=== PATIENT | female | born 1995 | race Caucasian/White ===

== ENCOUNTER 2016-10-26 09:02 | Day surgery (SDC) | payer BC, OTHER ==
[~2016-10-26] VITALS: Ht 172.7 cm; Wt 127.0 kg
[~2016-10-26 09:02] MED LIST: DOCUSATE SODIU250 MG PO; IBUPROFEN200 M1 PO; ONDANSETRON ODT4 MG PO; PERCOCET1 TA1 PO; PRENATA1 PO
[2016-10-26] MEDS ORDERED: NORCO1 TA1 PO (11:12)
--- NOTE | 2016-10-26 11:14 | Provider's Discharge Care Plan ---
Problem, Goal, Plan Problem List 1. Chronic cholecystitis
--- NOTE | 2016-10-26 11:14 | Provider's Discharge Care Plan ---
Problem, Goal, Plan Problem List 1. Chronic cholecystitis
--- NOTE | 2016-10-26 12:11 | DIAGNOSTIC IMAGING REPORT ---
PROCEDURE: XR INTRAOPERATIVE LAP LUDIVINA INDICATION: CHOLECYSTITIS TECHNIQUE: Intraoperative fluoroscopy provided for Dr. Larry performing an intraoperative cholangiogram following cholecystectomy. Total fluoroscopy time 0.5-minute Cumulative dose 2.7 mGy. COMPARISON: Ultrasound dated 10/08/2016 FINDINGS: One intraoperative fluoroscopic spot images of the right upper quadrant of the abdomen demonstrate cannulation of the cystic duct stump and opacification of the intrahepatic and extrahepatic biliary tree. There are no filling defects. There is normal passage of contrast into the duodenum. IMPRESSION: 1. Negative intraoperative cholangiogram.
[2016-10-26 13:54] VITALS: BP 131/80
--- NOTE | 2016-11-02 19:52 | OPERATIVE REPORT ---
DATE OF SURGERY: 10/26/2016 SURGEON: Dannie Coleman MD SENIOR SALES COMPENSATION ANALYST: Chely Milian III, MD PREOPERATIVE DIAGNOSES: 1. Chronic cholelithiasis 2. Acute and chronic cholecystitis POSTOPERATIVE DIAGNOSES: 1. Chronic cholelithiasis 2. Acute and chronic cholecystitis PROCEDURE PERFORMED: 1. Laparoscopic cholecystectomy with cholangiography ANESTHESIA: General. INDICATIONS: The patient is a 21-year-old woman with attacks of right upper quadrant abdominal pain. Ultrasound during the last attack showed gallbladder sludge or polyp with edema and pericholecystic fluid. She has had multiple attacks, and this latest one was long and persistent. SURGICAL TECHNIQUE: The patient was taken to the operating room, where a general anesthetic was administered and the patient prepped and draped in the usual sterile fashion. The patient received an orogastric tube, IV antibiotics, and sequential compression devices. A local anesthetic of 0.5% Marcaine with epinephrine was used at each incision site. An intraumbilical incision was made, and a Veress needle was used to insufflate the abdominal cavity. Visualization was obtained, and 3 additional trocars were placed in the upper abdomen. Adhesions of the anterior gallbladder to the omentum were taken down with blunt and electrocautery dissection. The cystic duct was isolated at the neck of the gallbladder and a clip placed. A fluoroscopic cholangiogram was carried out, which revealed free flow into the duodenum and no filling defects. The cystic duct and cystic artery were doubly clipped and divided and the gallbladder stripped from the gallbladder fossa using electrocautery. The gallbladder was delivered through the upper midline trocar site after being emptied of contents and submitted for histopathology. The gallbladder bed was inspected and found to be hemostatic. Additional Marcaine was instilled, gas was evacuated, and the midline sites closed with interrupted subcuticular 4-0 Vicryl suture and Steri-Strips. Dressings were placed. The patient left in good condition. No intraoperative complications were encountered.
== END 2016-10-26 15:22 | disposition home or self-care (01) ==
LOC: OR SRH 09:02 → SCU SRH 09:03 → OR SRH 11:00
PROVIDERS: Surgery
PROC: 0FT44ZZ Resection of Gallbladder, Percutaneous Endoscopic Approach (ICD-10-PCS; principal; 2016-10-26 11:00)
PROC: BF131ZZ Fluoroscopy of Gallbladder and Bile Ducts using Low Osmolar Contrast (ICD-10-PCS; principal; 2016-10-26 11:00)
DX: K80.10 Calculus of gallbladder with chronic cholecystitis without obstruction (principal); Z72.0 Tobacco use
CPT/HCPCS: 29240; 50002; 60001; 70002; 80102; 80212; 80248; 80852; 82794; 82807; 83338; 83339; 83348; 83587; 83920; 83937; 83982; 84038; 93070

== ENCOUNTER 2017-02-26 21:42 | Emergency (ER) | payer BC ==
[~2017-02-26 21:42] MED LIST changes: +NORCO1 TA1 PO
--- NOTE | 2017-02-26 22:21 | ED NURSING NOTES ---
Clinical Report - Nurses [facility] [address] [place] [address] 02/26/2017 21:42 Patient: SARAH CRUZ TRIAGE Triage time 21:45. Acuity: LEVEL 4. Chief Complaint: COUGH, RUNNY NOSE, FEVER and SORE THROAT and CHEST PAIN. --21:55 Ama Kirby R.N. 21:47 02/26/17. BP: 145/84 taken on the left arm, while lying. HR: 99 (regular and normal rate). RR: 18. O2 saturation: 97% on room air. Temp: 98.5 F. Pain level now: 04/23. --21:55 Ama Kirby R.N. Weight: 113.3 kg stated. Height/Length: 68 inches Per Patient. BMI: 38. --21:53 Ama Kirby R.N. Medications Control implant. --21:51 Ama Kirby R.N. Zofran Oral (Tablet 4 mg) 1 tablet, daily as needed. --21:51 Ama Kirby R.N. Omeprazole Oral (Tablet Delayed Release 20 mg) 1 tablet, daily. --21:52 Ama Kirby R.N. Allergies Amoxicillin. Definite Severe(itching) --21:52 Ama Kirby R.N. History Arrived by private vehicle. Historian: patient. Unaccompanied. Primary physician (otoniel). Onset was gradual. Worsened while sleeping and coughing. Symptoms still present (about 3 days). ( started 3 days ago, with coughing and chest pain with cough). She has had chills and fatigue. She has had moderate chest congestion (3 days - still present). ( coughing white caho phlem). PAST MEDICAL HX: Immunizations: up-to-date. Last normal menstrual period was 2 weeks ago. 1. Para 1. Uses depo implants. SOCIAL HX: Light tobacco smoker (cigarette)- less than 1/2 a pack per day. Occasional alcohol use; consumes liquor occasionally. No drug use. No infectious disease exposure. ABUSE ASSESSMENT: No report of abuse. SELF HARM ASSESSMENT: A self harm assessment was performed. The patient answered "no" to the question "Have you recently felt down, depressed, or hopeless?", "Have you noticed less interest or pleasure in doing things?", "Do you have thoughts of harming or killing yourself?", "Are you here because you tried to hurt yourself?", "Have you ever tried to hurt yourself before today?", "Have you recently had thoughts about harming or killing others?" and "Do you have any dangerous items in your possession?". FALL RISK ASSESSMENT: Fall risk assessment completed. No fall risk identified. NUTRITIONAL RISK ASSESSMENT: The nutritional risk assessment revealed no deficiencies. FUNCTIONAL ASSESSMENT: Functional assessment: no impairments noted. LEARNING NEEDS ASSESSMENT: The learning needs assessment revealed no barriers. SKIN INTEGRITY ASSESSMENT: Skin integrity risk assessment completed. No skin integrity risk identified. --21:55 Ama Kirby R.N. PROBLEMS: Nausea. Abdominal Pain. URI. --21:52 Ama Kirby R.N. ADDITIONAL SURGERIES: Cholecystectomy. Dental Surgery. --21:52 Ama Kirby R.N. Interventions ID band on patient. --:55 Ama Kirby R.N. PHYSICAL ASSESSMENT Ambulatory to room. GENERAL / NEURO / PSYCH: Alert. Oriented X 4. Appears in no acute distress. HEENT: Pupils equal, round and reactive to light. Ears within normal limits. Pharynx within normal limits. Voice within normal limits. Mucous membranes are pink. RESPIRATORY: Respirations not labored. Nonproductive cough (pt states productive however sounds very dry). Breath sounds within normal limits. CVS: Normal sinus rhythm noted. Capillary refill less than 2 seconds. SKIN: Skin is warm and dry. Normal skin turgor. --:56 Ama Kirby R.N. NURSING PROGRESS NOTES Patient gowned. Two patient identifiers checked. Call light placed in reach. Side rails up x 1. Bed placed in lowest position. Brakes of bed on. --:56 Ama Kirby R.N. Patient ready for evaluation- chart flagged. --21:56 Ama Kirby R.N. DISPOSITION / DISCHARGE Condition at departure: unchanged and stable. No learning barriers present. Discharge instructions provided and reviewed with the patient. Reviewed medication(s) side effects, precautions, dosing and course information. Prescription(s) given to the patient. Reviewed need to stop smoking. Patient verbalized understanding. Written instructions provided in Vincentian. The patient was discharged home and unaccompanied at time of discharge. She left the Emergency Department ambulatory and via private vehicle. Patient driving. --22:41 Ama Kirby R.N. 22:41 02/26/17. BP: deferred. HR: deferred. RR: deferred. O2 saturation: deferred. Temp: deferred. Pain level now deferred. --22:41 Ama Kirby R.N. Departure time: 22:42. --22:42 Ama Kirby R.N. Locked/Released at 02/26/2017 22:42 by Ama Kirby R.N.
--- NOTE | 2017-02-26 22:21 | ED CLINICAL REPORT ---
Clinical Report - Physicians/Mid Levels [facility] [address] [place] [address] 02/26/2017 21:42 Patient: SARAH CRUZ Time Seen: 21:45; initial patient contact, initial documentation, patient care assumed. Arrived- By private vehicle. Historian- patient. HISTORY OF PRESENT ILLNESS Chief Complaint: COUGH and SORE THROAT. This started about 3 days ago and is still present. It was gradual in onset. The illness is described as moderate. The patient has had a cough, chest discomfort, nasal congestion, chills and muscle aches. She has had chest pain and a nasal discharge. She has had scant amounts of thick, white sputum. No fever, sore throat, sinus pressure, sinus drainage or ear pain. Additional history - The patient has had contact with a sick mother. Symptoms of the sick contact include cough. They have had similar symptoms. Similar symptoms previously: None. Recent medical care: Not recently seen/assessed. REVIEW OF SYSTEMS No headache, vomiting, diarrhea or abdominal pain. All systems otherwise negative, except as recorded above. PAST HISTORY See nurses notes. PROBLEMS: Nausea. Abdominal Pain. URI. --21:52 Ama Kirby R.N. ADDITIONAL SURGERIES: Cholecystectomy. Dental Surgery. --21:52 Ama Kirby R.N. SOCIAL HISTORY Light tobacco smoker. Occasional alcohol use; consumes liquor. Not exposed to second-hand smoke at home. No drug use. No recent travel. Is a local resident. FAMILY HISTORY Negative. ADDITIONAL NOTES The nursing notes have been reviewed with agreement regarding the chief complaint, HPI, ROS, PMH and patient medications and allergies. PHYSICAL EXAM Vital Signs: 02/26/2017 21:47 BP: 145/84. HR: 99. RR: 18. O2 saturation: 97%. Temp: 98.5 F. Pain level now: 7/10. Have been reviewed as normal and appear to be correct. Appearance: Alert. No acute distress. Eyes: Pupils equal, round and reactive to light. Eyes normal inspection. ENT: Ears normal. Nose normal. Pharynx normal. Uvula midline. Neck: Normal inspection. Neck supple. CVS: Normal heart rate and rhythm. Heart sounds normal. Pulses normal. Respiratory: No respiratory distress. Breath sounds normal. Abdomen: Soft and nontender. No organomegaly. Moderately obese. Back: Normal inspection. Skin: Skin warm and dry. Normal skin color. No rash. Normal skin turgor. Extremities: Extremities exhibit normal ROM. No lower extremity edema. Neuro: Oriented X 3. No motor deficit. No sensory deficit. PROGRESS AND PROCEDURES Course of Care: tx plan discussed, pt worried about walking pneumonia, because her mom has same thing and we dx her with it, so she would feel better with abx. Patient counseled in person regarding the patient's stable condition and diagnosis. Differential Diagnosis: Other possible considerations: flu, uri, viral illness, sinusitis, allergies, asthma, bronchitis, pneumonia. Above considerations are based on history and physical exam. Differential diagnosis was discussed with patient. Disposition: Discharged home in good and unchanged condition (22:20). Condition: good and stable. CLINICAL IMPRESSION Acute rhinitis. No airway obstruction. INSTRUCTIONS Alternate Tylenol (Acetaminophen) and Motrin (Ibuprofen) for fever, temperature greater than 101 degrees orally. Take according to label instructions. Drink plenty of fluids today, for the next 24 hours until better. Warnings: GENERAL WARNINGS: Return or contact your physician immediately if your condition worsens or changes unexpectedly, if not improving as expected, or if other problems arise. Specifically return if problem worsens. Prescription Medications: Zithromax 250 mg tablets: take 2 orally today, followed by 1 daily for the next 4 days. No refills. Substitution is permissible. Follow-up: Follow up with your doctor in about three days as needed. Call for an appointment. Summary of care provided to patient. Understanding of the discharge instructions verbalized by patient. (Electronically signed by Keiko Cooper A.R.N.P. 02/26/2017 22:43)
--- NOTE | 2017-02-26 22:43 | ED MAR SUMMARY ---
..... Medication Administration Record [facility] [address] [place], [place] [id number] Patient: AMRIT CRUZBENNY Astorga Visit ID: [id number] 21y, F Weight: 113.3 kg Height/Length: 68 in BMI: 38 ALLERGIES: Amoxicillin
--- NOTE | 2017-02-26 22:43 | ED MED RECONCILIATION SUMMARY ---
Patient: SARAH CRUZ Medication Reconciliation Report [facility] VisitID: [id number] [address] [place] [address] 21y, F Registration Date/Time: 02/26/2017 Weight: 113.3 kg Height/Length: 68 in. BMI: 38.0 ALLERGIES: Amoxicillin The patient's Home Medications are listed below: THE FOLLOWING MEDICATIONS NEED TO BE RECONCILED: Control implant Omeprazole Oral (20 mg) 1 tablet, daily Zofran Oral (4 mg) 1 tablet, daily The source(s) of the original Home Medication information: Not obtained. The following Medications were given to the patient in the Emergency Department: None. The following Medications were prescribed to the patient: Zithromax 250 mg tablets: take 2 orally today, followed by 1 daily for the next 4 days. No refills. Substitution is permissible. -- Keiko Cooper A.R.N.P.
--- NOTE | 2017-02-26 22:43 | ED DISCHARGE INSTRUCTIONS ---
Patient: SARAH CRUZ General Instructions [facility] VisitID: [id number] [place] [address] 21y, F Registration Date/Time: 02/26/2017 Acute rhinitis. No airway obstruction. INSTRUCTIONS Alternate Tylenol (Acetaminophen) and Motrin (Ibuprofen) for fever, temperature greater than 101 degrees orally. Take according to label instructions. Drink plenty of fluids today, for the next 24 hours until better. Warnings: GENERAL WARNINGS: Return or contact your physician immediately if your condition worsens or changes unexpectedly, if not improving as expected, or if other problems arise. Specifically return if problem worsens. Prescription Medications: Zithromax 250 mg tablets: take 2 orally today, followed by 1 daily for the next 4 days. No refills. Substitution is permissible. Follow-up: Follow up with your doctor in about three days as needed. Call for an appointment. Summary of care provided to patient. Understanding of the discharge instructions verbalized by patient. ADDITIONAL INFORMATION Viral Respiratory Illness [Adult] You have an Upper Respiratory Illness (URI) caused by a virus. This illness is contagious during the first few days. It is spread through the air by coughing and sneezing or by direct contact (touching the sick person and then touching your own eyes, nose or mouth). Most viral illnesses go away within 7-10 days with rest and simple home remedies. Sometimes, the illness may last for several weeks. Antibiotics will not kill a virus and are generally not prescribed for this condition. Home Care: 1) If symptoms are severe, rest at home for the first 2-3 days. When you resume activity, don't let yourself get too tired. 2) Avoid being exposed to cigarette smoke (yours or others). 3) Tylenol (acetaminophen) or ibuprofen (Advil, Motrin) will help fever, muscle aching and headache. (Persons under 18 with fever should not take aspirin since this may cause liver damage.) 4) Your appetite may be poor, so a light diet is fine. Avoid dehydration by drinking 6-8 glasses of fluids per day (water, soft drinks, juices, tea, soup). Extra fluids will help loosen secretions in the nose and lungs. 5) Lfew-xzq-knlxvyn cold medicines will not shorten the length of time youre sick, but they may be helpful for the following symptoms: cough (Robitussin DM); sore throat (Chloraseptic lozenges or spray); nasal and sinus congestion (Actifed, Sudafed, Chlortrimeton). Follow Up with your doctor or as advised if you dont improve over the next week. Get Prompt Medical Attention if any of the following occur: -- Cough with lots of colored sputum (mucus) or blood in your sputum -- Chest pain, shortness of breath, wheezing or have trouble breathing -- Severe headache; face, neck or ear pain -- Fever over 100.4 F (38.0 C) for more than three days -- You cant swallow due to throat pain Fever Control (Adult) A fever is a natural reaction of the body to an illness. In most cases, the temperature itself is not harmful. It actually helps the body fight infections. A fever does not need to be treated unless you feel very uncomfortable. Home Care If you feel warm, check your temperature. If you feel very uncomfortable and your temperature is at or higher than 100.4F (38C) oral, you may take acetaminophen (Tylenol) every 4 to 6 hours. If you cant take or keep down oral medicine, ask your pharmacist for Tylenol suppositories, which you can get without a prescription. If the fever does not respond to acetaminophen within 1 hour, take ibuprofen (Advil or Motrin). If this works, keep taking the ibuprofen every 6 to 8 hours. Note: If you have chronic liver or kidney disease or ever had a stomach ulcer or GI bleeding, talk with your doctor before using these medications. If either medication alone does not keep the fever down, you may alternate the two medicines every 3 to 4 hours, only if your healthcare provider has instructed you to do so. For example, take Motrin then wait 3 hours, take Tylenol then wait 3 hours, take Motrin, and so on. Follow your healthcare providers instructions exactly. Clothing: Keep clothing light because excess body heat is lost through the skin. The fever will go up if you wear extra layers or wrap in blankets. Fluids: Fever causes the body to lose water through evaporation. Drink plenty of fluids such as water, juice, clear sodas, denny guerline, or lemonade. Do not use aspirin in anyone under 18 years of age who is ill with a fever. It can cause severe liver damage. Follow Up with your doctor or as advised by our staff if you do not get better after 48 hours. Get Prompt Medical Attention if any of the following occur: Fever does not get better after taking fever medication Fast or difficult breathing Earache, sinus pain, stiff or painful neck, headache, repeated diarrhea or vomiting You feel unusually irritable, drowsy, or confused A rash appears You feel weak or dizzy, or that you might faint Azithromycin Oral tablet What is this medicine? AZITHROMYCIN (az ith evelyne JEAN sin) is a macrolide antibiotic. It is used to treat or prevent certain kinds of bacterial infections. It will not work for colds, flu, or other viral infections. How should I use this medicine? Take this medicine by mouth with a full glass of water. Follow the directions on the prescription label. The tablets can be taken with food or on an empty stomach. If the medicine upsets your stomach, take it with food. Take your medicine at regular intervals. Do not take your medicine more often than directed. Take all of your medicine as directed even if you think your are better. Do not skip doses or stop your medicine early. Talk to your program schedule clerk regarding the use of this medicine in children. Special care may be needed. What side effects may I notice from receiving this medicine? Side effects that you should report to your doctor or health child care centre manager as soon as possible: allergic reactions like skin rash, itching or hives, swelling of the face, lips, or tongue confusion, nightmares or hallucinations dark urine difficulty breathing hearing loss irregular heartbeat or chest pain pain or difficulty passing urine redness, blistering, peeling or loosening of the skin, including inside the mouth white patches or sores in the mouth yellowing of the eyes or skin Side effects that usually do not require medical attention (report to your doctor or health child care centre manager if they continue or are bothersome): diarrhea dizziness, drowsiness headache stomach upset or vomiting tooth discoloration vaginal irritation What may interact with this medicine? Do not take this medicine with any of the following medications: lincomycin This medicine may also interact with the following medications: amiodarone antacids cyclosporine digoxin magnesium nelfinavir phenytoin warfarin What if I miss a dose? If you miss a dose, take it as soon as you can. If it is almost time for your next dose, take only that dose. Do not take double or extra doses. Where should I keep my medicine? Keep out of the reach of children. Store at room temperature between 15 and 30 degrees C (59 and 86 degrees F). Throw away any unused medicine after the expiration date. What should I tell my health care provider before I take this medicine? They need to know if you have any of these conditions: kidney disease liver disease irregular heartbeat or heart disease an unusual or allergic reaction to azithromycin, erythromycin, other macrolide antibiotics, foods, dyes, or preservatives or trying to get breast-feeding What should I watch for while using this medicine? Tell your doctor or health child care centre manager if your symptoms do not improve. Do not treat diarrhea with over the counter products. Contact your doctor if you have diarrhea that lasts more than 2 days or if it is severe and watery. This medicine can make you more sensitive to the sun. Keep out of the sun. If you cannot avoid being in the sun, wear protective clothing and use sunscreen. Do not use sun lamps or tanning beds/booths. You have been given the following additional information: Uri, Viral, No Abx (Adult) Fever Control (Adult) Azithromycin Oral tablet (Electronically signed by Keiko Cooper A.R.N.P. 02/26/2017 22:43)
--- NOTE | 2017-02-26 22:43 | ED MED RECONCILIATION SUMMARY ---
Patient: SARAH CRUZ Medication Reconciliation Report [facility] VisitID: [id number] [address] [place] [address] 21y, F Registration Date/Time: 02/26/2017 Weight: 113.3 kg Height/Length: 68 in. BMI: 38.0 ALLERGIES: Amoxicillin The patient's Home Medications are listed below: THE FOLLOWING MEDICATIONS NEED TO BE RECONCILED: Control implant Omeprazole Oral (20 mg) 1 tablet, daily Zofran Oral (4 mg) 1 tablet, daily The source(s) of the original Home Medication information: Not obtained. The following Medications were given to the patient in the Emergency Department: None. The following Medications were prescribed to the patient: Zithromax 250 mg tablets: take 2 orally today, followed by 1 daily for the next 4 days. No refills. Substitution is permissible. -- Keiko Cooper A.R.N.P.
--- NOTE | 2017-02-26 22:43 | ED MAR SUMMARY ---
..... Medication Administration Record [facility] [address] [place], [place] [id number] Patient: AMRIT CRUZBENNY Astorga Visit ID: [id number] 21y, F Weight: 113.3 kg Height/Length: 68 in BMI: 38 ALLERGIES: Amoxicillin
== END 2017-02-26 22:42 | disposition home or self-care (01) ==
LOC: ED SRH 21:42
DX: J00 Acute nasopharyngitis [common cold] (principal); Z72.0 Tobacco use; Z88.0 Allergy status to penicillin; Z79.899 Other long term (current) drug therapy

== ENCOUNTER 2017-03-18 17:51 | Emergency (ER) | payer BC ==
--- NOTE | 2017-03-18 18:33 | ED CLINICAL REPORT ---
Clinical Report - Physicians/Mid Levels [facility] [address] [place] [address] 03/18/2017 17:53 Patient: SARAH CRUZ Time Seen: 17:57; initial patient contact. Arrived- By private vehicle. Historian- patient. HISTORY OF PRESENT ILLNESS Chief Complaint: COUGH. This started 3 weeks ago; Pt. states she was seen here x3 weeks ago and treated for an URI with a z-pack. She is here today because she feels like she is not getting any better. and is still present and worsening. The illness is described as mild. The patient has had a cough, nasal congestion, sinus pressure and a nasal discharge. She has had scant amounts of thick, clear, white sputum. No difficulty breathing, chest pain, sore throat or hoarseness. She has had mild central chest congestion. Additional history - No known contact with a sick individual. Similar symptoms previously: Recent medical care: The patient was seen recently at this facility in the emergency department (2 weeks ago). ( had an allergic reaction to the zithromax and didn't take the last dose). REVIEW OF SYSTEMS No headache, eye discomfort, nausea, vomiting or diarrhea. All systems otherwise negative, except as recorded above. PAST HISTORY See nurses notes. Problems: Nausea. Abdominal Pain. URI. Medications: Control implant. Omeprazole Oral (Tablet Delayed Release 20 mg) 1 tablet, daily. Zofran Oral (Tablet 4 mg) 1 tablet, daily as needed. Allergies: Amoxicillin. Definite Severe(itching) Azithromycin. SOCIAL HISTORY Heavy tobacco smoker (cigarette)- less than 1 pack per day. No alcohol use or drug use. FAMILY HISTORY Negative. ADDITIONAL NOTES The nursing notes have been reviewed with agreement regarding the chief complaint, HPI, ROS, PMH and patient medications and allergies. PHYSICAL EXAM Vital Signs: 03/18/2017 17:59 BP: 115/62. HR: 110. RR: 18. O2 saturation: 96%. Temp: 99.0 F. Have been reviewed. Appearance: Alert. No acute distress. Eyes: Pupils equal, round and reactive to light. ENT: Ears normal. Nose normal. Pharynx normal. Uvula midline. Neck: Normal inspection. CVS: Normal heart rate and rhythm. Heart sounds normal. Respiratory: No respiratory distress. Mild bilateral rhonchi present posteriorly. Abdomen: Soft and nontender. No organomegaly. LABS, X-RAYS, AND EKG Chest X-ray: Normal Chest X-Ray. The X-rays were independently viewed by me, interpreted by the radiologist and discussed with the radiologist. PROGRESS AND PROCEDURES Course of Care: Patient is stable. Symptoms better. CLINICAL IMPRESSION Acute bacterial bronchitis. INSTRUCTIONS No strenuous activity. Rest. Do not work for two days until better. Drink plenty of fluids. Do not smoke. No alcohol. Warnings: Further evaluation is necessary. It is very important to follow up with a physician. Your Current Medications: CONTINUE TAKING THE FOLLOWING MEDICATIONS: Control implant*. Omeprazole Oral : Tablet Delayed Release 20 mg, 1 tablet daily. Zofran Oral : Tablet 4 mg, 1 tablet daily, prn. Prescription Medications: Robitussin A-C cough syrup take two (2) teaspoons orally every 8 hours as needed for cough. Dispense one hundred twenty (120) mL. No refill. Substitution is permissible. Doxycycline 100 mg: Take 1 capsule orally every 12 hours for 10 days. No refill. Understanding of the discharge instructions verbalized by patient. (Electronically signed by Bharti Dejesus PA-C 03/18/2017 21:29)
--- NOTE | 2017-03-18 18:33 | ED NURSING NOTES ---
Clinical Report - Nurses [facility] [address] [place] [address] 03/18/2017 17:53 Patient: SARAH CRUZ TRIAGE Triage time 17:57. Acuity: LEVEL 4. Chief Complaint: COUGH and (follow up on URI.). Alert. No acute distress. ( Pt. states she was seen here x3 weeks ago and treated for an URI with a z-pack. She is here today because she feels like she is not getting any better.). SEPSIS SCREEN: Sepsis Screen. Negative (no infection suspected/documented). --18:01 Brea Wisdom R.N. 17:59 03/18/17. BP: 115/62. HR: 110. RR: 18. O2 saturation: 96%. Temp: 99.0 F. Pain level now 5/10. --18:01 Brea Wisdom R.N. Weight: 113.3 kg stated. Height/Length: 68 inches Per Patient. BMI: 38. --17:57 Brea Wisdom R.N. Medications Control implant. Omeprazole Oral (Tablet Delayed Release 20 mg) 1 tablet, daily. Zofran Oral (Tablet 4 mg) 1 tablet, daily as needed. --18:00 Brea Wisdom R.N. Allergies Amoxicillin. Definite Severe(itching) --18:00 Brea Wisdom R.N. Azithromycin. --18:01 Brea Wisdom R.N. History Arrived by private vehicle. Historian: patient. Unaccompanied. Primary physician (Dr. Flores). Onset. (3 weeks ago). 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 PAST MEDICAL HX: Immunizations: up-to-date. Last normal menstrual period- 3 weeks ago. SOCIAL HX: Heavy tobacco smoker (cigarette)- less than 1 pack per day. Occasional alcohol use. (weekends). No drug use. ABUSE ASSESSMENT: Abuse assessment: The patient was asked "Do you feel safe in your home?" and "Has anyone hurt you or threatened to hurt you?". No report of abuse. SELF HARM ASSESSMENT: A self harm assessment was performed. The patient answered "no" to the question "Do you have thoughts of harming or killing yourself?" and "Have you recently had thoughts about harming or killing others?". NUTRITIONAL RISK ASSESSMENT: The nutritional risk assessment revealed no deficiencies. FUNCTIONAL ASSESSMENT: Functional assessment: no impairments noted. LEARNING NEEDS ASSESSMENT: The learning needs assessment revealed no barriers. --18: Brea Wisdom R.N. PROBLEMS: Nausea. Abdominal Pain. URI. --18: Brea Wisdom R.N. ADDITIONAL SURGERIES: Cholecystectomy. Dental Surgery. --18: Brea Wisdom R.N. Interventions ID band on patient. Ambulatory. --18: Brea Wisdom R.N. PHYSICAL ASSESSMENT Ambulatory to room. GENERAL / NEURO / PSYCH: Alert. Appears in no acute distress. HEENT: Mucous membranes are pink. RESPIRATORY: Respirations not labored. CVS: Capillary refill less than 2 seconds. SKIN: Skin is warm and dry. --18: Brea Wisdom R.N. NURSING PROGRESS NOTES Patient gowned. Head of bed elevated. Two patient identifiers checked. Call light placed in reach. Side rails up x 2. Bed placed in lowest position. Brakes of bed on. Patient ready for evaluation- chart flagged. --18: Brea Wisdom R.N. DISPOSITION / DISCHARGE 18:45. Departure time: 1844. Condition at departure: stable. No learning barriers present. Discharge instructions provided and reviewed with the patient. Reviewed medication(s) side effects, precautions, dosing and course information. Prescription(s) given to the patient. Reviewed referral to family practice for followup. Work note given. Patient verbalized understanding. Written instructions provided in Yakut. The patient was discharged home and unaccompanied at time of discharge. She left the Emergency Department ambulatory and via private vehicle. Medication list reviewed and validated. --18:49 Brea Wisdom R.N. 18:45 03/18/17. HR: 90. RR: 16. Additional comments: d/c v/s deferred due to pt. in ED < 1 hour. . --18:49 Brea Wisdom R.N. Locked/Released at 03/18/2017 18:49 by Brea Wisdom R.N.
--- NOTE | 2017-03-18 18:33 | ED NURSING NOTES ---
Clinical Report - Nurses [facility] [address] [place] [address] 03/18/2017 17:53 Patient: SARAH CRUZ TRIAGE Triage time 17:57. Acuity: LEVEL 4. Chief Complaint: COUGH and (follow up on URI.). Alert. No acute distress. ( Pt. states she was seen here x3 weeks ago and treated for an URI with a z-pack. She is here today because she feels like she is not getting any better.). SEPSIS SCREEN: Sepsis Screen. Negative (no infection suspected/documented). --18:01 Brea Wisdom R.N. 17:59 03/18/17. BP: 115/62. HR: 110. RR: 18. O2 saturation: 96%. Temp: 99.0 F. Pain level now 5/10. --18:01 Brea Wisdom R.N. Weight: 113.3 kg stated. Height/Length: 68 inches Per Patient. BMI: 38. --17:57 Brea Wisdom R.N. Medications Control implant. Omeprazole Oral (Tablet Delayed Release 20 mg) 1 tablet, daily. Zofran Oral (Tablet 4 mg) 1 tablet, daily as needed. --18:00 Brea Wisdom R.N. Allergies Amoxicillin. Definite Severe(itching) --18:00 Brea Wisdom R.N. Azithromycin. --18:01 Brea Wisdom R.N. History Arrived by private vehicle. Historian: patient. Unaccompanied. Primary physician (Dr. Flores). Onset. (3 weeks ago). 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 PAST MEDICAL HX: Immunizations: up-to-date. Last normal menstrual period- 3 weeks ago. SOCIAL HX: Heavy tobacco smoker (cigarette)- less than 1 pack per day. Occasional alcohol use. (weekends). No drug use. ABUSE ASSESSMENT: Abuse assessment: The patient was asked "Do you feel safe in your home?" and "Has anyone hurt you or threatened to hurt you?". No report of abuse. SELF HARM ASSESSMENT: A self harm assessment was performed. The patient answered "no" to the question "Do you have thoughts of harming or killing yourself?" and "Have you recently had thoughts about harming or killing others?". NUTRITIONAL RISK ASSESSMENT: The nutritional risk assessment revealed no deficiencies. FUNCTIONAL ASSESSMENT: Functional assessment: no impairments noted. LEARNING NEEDS ASSESSMENT: The learning needs assessment revealed no barriers. --18: Brea Wisdom R.N. PROBLEMS: Nausea. Abdominal Pain. URI. --18: Brea Wisdom R.N. ADDITIONAL SURGERIES: Cholecystectomy. Dental Surgery. --18: Brea Wisdom R.N. Interventions ID band on patient. Ambulatory. --18: Brea Wisdom R.N. PHYSICAL ASSESSMENT Ambulatory to room. GENERAL / NEURO / PSYCH: Alert. Appears in no acute distress. HEENT: Mucous membranes are pink. RESPIRATORY: Respirations not labored. CVS: Capillary refill less than 2 seconds. SKIN: Skin is warm and dry. --18: Brea Wisdom R.N. NURSING PROGRESS NOTES Patient gowned. Head of bed elevated. Two patient identifiers checked. Call light placed in reach. Side rails up x 2. Bed placed in lowest position. Brakes of bed on. Patient ready for evaluation- chart flagged. --18: Brea Wisdom R.N. DISPOSITION / DISCHARGE 18:45. Departure time: 1844. Condition at departure: stable. No learning barriers present. Discharge instructions provided and reviewed with the patient. Reviewed medication(s) side effects, precautions, dosing and course information. Prescription(s) given to the patient. Reviewed referral to family practice for followup. Work note given. Patient verbalized understanding. Written instructions provided in Georgian. The patient was discharged home and unaccompanied at time of discharge. She left the Emergency Department ambulatory and via private vehicle. Medication list reviewed and validated. --18:49 Brea Wisdom R.N. 18:45 03/18/17. HR: 90. RR: 16. Additional comments: d/c v/s deferred due to pt. in ED < 1 hour. . --18:49 Brea Wisdom R.N. Locked/Released at 03/18/2017 18:49 by Brea Wisdom R.N.
--- NOTE | 2017-03-18 18:34 | ED ORDER SUMMARY ---
..... Patient: SARAH CRUZ OrderSheet [facility] VisitID: [id number] [address] [place] [address] 21y, F Registration Date/Time: 03/18/2017 ORDER SHEET Weight: 113.3 kg (stated) Allergies: Amoxicillin, Azithromycin GENERAL ORDERS: Chest 2V Urgent (18:12 03/18/2017 Zhao DOWNS) (Ack 18:24 [place] ER Tech1) (18:38 [place]) MEDICATION ORDERS: IV FLUIDS: ORDER SHEET NOTES: [Electronically signed by Brea Wisdom R.N. (18:49 03/18/2017)] [Electronically signed by Bharti Dejesus PA-C (21:29 03/18/2017)] [Electronically locked/signed by Brea Wisdom R.N. (18:49 03/18/2017)]
--- NOTE | 2017-03-18 18:34 | ED ORDER SUMMARY ---
..... Patient: ASRAH CRUZ OrderSheet [facility] VisitID: [id number] [address] [place] [address] 21y, F Registration Date/Time: 03/18/2017 ORDER SHEET Weight: 113.3 kg (stated) Allergies: Amoxicillin, Azithromycin GENERAL ORDERS: Chest 2V Urgent (18:12 03/18/2017 Zhao DOWNS) (Ack 18:24 NHouse ER Tech1) (18:38 [place]) MEDICATION ORDERS: IV FLUIDS: ORDER SHEET NOTES: [Electronically signed by Brea Wisdom R.N. (18:49 03/18/2017)] [Electronically signed by Bharti Dejesus PA-C (21:29 03/18/2017)] [Electronically locked/signed by Brea Wisdom R.N. (18:49 03/18/2017)]
--- NOTE | 2017-03-18 20:49 | DIAGNOSTIC IMAGING REPORT ---
PROCEDURE: XR CHEST 2 VIEW INDICATION: SHORTNESS OF BREATH TECHNIQUE: Two views. COMPARISON: None. FINDINGS: The cardiomediastinal contour and central vasculature are within normal limits. Scattered strandy density in the [id number] lungs bilaterally. No dense consolidations. No pleural effusion, or pneumothorax. The visualized osseous structures are intact. IMPRESSION: 1. Scatter strandy density is likely atelectatic change or potentially scarring. No dense consolidations to suggest acute pneumonia.
--- NOTE | 2017-03-18 20:49 | DIAGNOSTIC IMAGING REPORT ---
PROCEDURE: XR CHEST 2 VIEW INDICATION: SHORTNESS OF BREATH TECHNIQUE: Two views. COMPARISON: None. FINDINGS: The cardiomediastinal contour and central vasculature are within normal limits. Scattered strandy density in the [id number] lungs bilaterally. No dense consolidations. No pleural effusion, or pneumothorax. The visualized osseous structures are intact. IMPRESSION: 1. Scatter strandy density is likely atelectatic change or potentially scarring. No dense consolidations to suggest acute pneumonia.
--- NOTE | 2017-03-18 21:30 | ED MAR SUMMARY ---
..... Medication Administration Record [facility] [address] [place], [place] [id number] Patient: SARAH CRUZ Gauri Visit ID: [id number] 21y, F Weight: 113.3 kg Height/Length: 68 in BMI: 38 ALLERGIES: Azithromycin, Amoxicillin
--- NOTE | 2017-03-18 21:30 | ED DISCHARGE INSTRUCTIONS ---
Patient: SARAH CRUZ General Instructions Merged With [facility] VisitID: [id number] [place] [address] 21y, F Registration Date/Time: 03/18/2017 Acute bacterial bronchitis. INSTRUCTIONS No strenuous activity. Rest. Do not work for two days until better. Drink plenty of fluids. Do not smoke. No alcohol. Warnings: Further evaluation is necessary. It is very important to follow up with a physician. Your Current Medications: CONTINUE TAKING THE FOLLOWING MEDICATIONS: Control implant*. Omeprazole Oral : Tablet Delayed Release 20 mg, 1 tablet daily. Zofran Oral : Tablet 4 mg, 1 tablet daily, prn. Prescription Medications: Robitussin A-C cough syrup take two (2) teaspoons orally every 8 hours as needed for cough. Dispense one hundred twenty (120) mL. No refill. Substitution is permissible. Doxycycline 100 mg: Take 1 capsule orally every 12 hours for 10 days. No refill. Understanding of the discharge instructions verbalized by patient. ADDITIONAL INFORMATION Bronchitis (Adult: Abx Tx) BRONCHITIS is an infection of the air passages (bronchial tubes). It often occurs during the common cold. Symptoms include cough with mucus (phlegm) and low-grade fever. Bronchitis usually lasts 7-14 days. Mild cases can be treated with simple home remedies. More severe infection is treated with an antibiotic. Home Care: If symptoms are severe, rest at home for the first 2-3 days. When you resume activity, don't let yourself get too tired. Do not smoke. Avoid being exposed to the smoke of others. You may use acetaminophen (Tylenol) or ibuprofen (Motrin, Advil) to control fever or pain, unless another medicine was prescribed for this. [NOTE: If you have chronic liver or kidney disease or ever had a stomach ulcer or GI bleeding, talk with your doctor before using these medicines.] Your appetite may be poor, so a light diet is fine. Avoid dehydration by drinking 6-8 glasses of fluids per day (water, soft, drinks, juices, tea, soup, etc.). Extra fluids will help loosen secretions in the lungs. Firb-[id number]-uixkavb cough medicines that containdextromethorphan(such as Robitussin DM) and decongestants (Actifed or Sudafed) may help relieve cough and congestion. [NOTE: Do not use decongestants if you have high blood pressure.] Finish all antibiotic medicine, even if you are feeling better after only a few days. Follow Up with your doctor or as directed if you dont start to feel better after three days. [NOTE: If you are age 65 or older, or if you have chronic asthma or COPD, we recommend a PNEUMOCOCCAL VACCINATION every five years and a yearly INFLUENZAVACCINATION (FLU-SHOT) every . Ask your doctor about this. If you had an X-ray, a radiologist will review it. You will be notified of any new findings that may affect your care.] Get Prompt Medical Attention if any of the following occur: Fever over 100.4F (38.0C) for more than three days Trouble breathing, wheezing or pain with breathing Coughing up blood or increased amounts of colored sputum Weakness, drowsiness, headache, facial pain, ear pain or a stiff neck You have been given the following additional information: Bronchitis, Antiobiotic Treatment (Adult) No strenuous activity. Rest. Do not work for two days until better. (Electronically signed by Bharti Dejesus PA-C 03/18/2017 21:29)
--- NOTE | 2017-03-18 21:30 | ED MAR SUMMARY ---
..... Medication Administration Record [facility] [address] [place], [place] [id number] Patient: SARAH CRUZ Gauri Visit ID: [id number] 21y, F Weight: 113.3 kg Height/Length: 68 in BMI: 38 ALLERGIES: Azithromycin, Amoxicillin
--- NOTE | 2017-03-18 21:30 | ED MED RECONCILIATION SUMMARY ---
Patient: SARAH CRUZ Medication Reconciliation Report [facility] VisitID: [id number] [place] [address] 21y, F Registration Date/Time: 03/18/2017 Weight: 113.3 kg Height/Length: 68 in. BMI: 38.0 ALLERGIES: Amoxicillin, Azithromycin The patient's Home Medications are listed below: CONTINUE TAKING THE FOLLOWING MEDICATIONS: Control implant Omeprazole Oral (20 mg) 1 tablet, daily Zofran Oral (4 mg) 1 tablet, daily The source(s) of the original Home Medication information: Not obtained. The following Medications were given to the patient in the Emergency Department: None. The following Medications were prescribed to the patient: Robitussin A-C cough syrup take two (2) teaspoons orally every 8 hours as needed for cough. Dispense one hundred twenty (120) mL. No refill. Substitution is permissible. -- Bharti Dejesus PA-C Doxycycline 100 mg: Take 1 capsule orally every 12 hours for 10 days. No refill. -- Bharti Dejesus PA-C
--- NOTE | 2017-03-18 21:30 | ED MED RECONCILIATION SUMMARY ---
Patient: SARAH CRUZ Medication Reconciliation Report [facility] VisitID: [id number] [place] [address] 21y, F Registration Date/Time: 03/18/2017 Weight: 113.3 kg Height/Length: 68 in. BMI: 38.0 ALLERGIES: Amoxicillin, Azithromycin The patient's Home Medications are listed below: CONTINUE TAKING THE FOLLOWING MEDICATIONS: Control implant Omeprazole Oral (20 mg) 1 tablet, daily Zofran Oral (4 mg) 1 tablet, daily The source(s) of the original Home Medication information: Not obtained. The following Medications were given to the patient in the Emergency Department: None. The following Medications were prescribed to the patient: Robitussin A-C cough syrup take two (2) teaspoons orally every 8 hours as needed for cough. Dispense one hundred twenty (120) mL. No refill. Substitution is permissible. -- Bharti Dejesus PA-C Doxycycline 100 mg: Take 1 capsule orally every 12 hours for 10 days. No refill. -- Bharti Dejesus PA-C
== END 2017-03-18 18:51 | disposition home or self-care (01) ==
LOC: ED SRH 17:51
DX: J20.8 Acute bronchitis due to other specified organisms (principal); Z79.899 Other long term (current) drug therapy; F17.210 Nicotine dependence, cigarettes, uncomplicated